=== PATIENT | female | born 1945 | race Caucasian/White ===

== ENCOUNTER 2025-07-03 20:03 | Inpatient (IN) | payer MEDICARE, MEDICAID, SELFPAY ==
[2025-07-03] VITALS (8 sets, daily range): BP systolic 149–176; BP diastolic 52–105; PULSE 56–65; RESP 18–24; TEMP 37; O2SAT 93–97; BMI 36.3
--- NOTE | 2025-07-03 20:22 | PCA ---
NO OLD EKG
[2025-07-03 20:34] LABS: Hematocrit 36.0 % (37-47); Hemoglobin 11.8 g/dL (12.0-15.0); Immature Granulocytes Count 0.020 X10^3/uL (0.0-0.0); Mean Corp Hgb Conc 32.8 g/dL (32-36); Mean Corpuscular Volume 90.9 fL (81-99); Mean Platelet Vol. 9.9 fl (6.2-12.0); NRBC Flagged by Analyzer 0 % (0-5); Platelet Count 236 K/mm3 (150-450); RBC Distribution Width CV 14.6 % (11.6-14.6); RBC Distribution Width SD 48.7 fl (35.1-43.9); Red Blood Count 3.96 M/mm3 (4.2-5.4); White Blood Count 10.4 K/mm3 (4.4-11.0)
--- NOTE | 2025-07-03 20:40 | RAD_ITS ---
PROCEDURE: CHEST 1 VIEW (PORTABLE) 07/03/2025 REASON FOR EXAM: RESPIRATORY DISTRESS, EXPIRATORY WHEEZING, BILATER TECHNIQUE: Frontal view of the chest. FINDINGS: The heart is normal in size. Hilar prominence suggestive of vascular congestion. No acute osseous abnormalities. RAD/Chest 1 View (Portable) IMPRESSION: Possible vascular congestion. Reading Location: [id number]
--- NOTE | 2025-07-03 20:47 | ED.VIS.DYS ---
HPI History of Present Illness Chief Complaint: Shortness of Breath Detail of Chief Complaint: Acute shortness of breath that started early this afternoon Informant: patient Onset/Context/Timing Onset: Today and Hours Context: sudden and rest Timing: Continuous Quality: Positive for Dyspnea on exertion, Orthopnea and Wheezing; Negative for PND Current Severity: Moderate Maximum Severity: Severe Worsened by: Exertion and Lying flat Relieved by: Nothing Associated Symptoms cough; Negative for rhinorrhea, post nasal drip, ear pain, fever, sore throat, subjective, chills, sweats, clear sputum, white sputum, yellow sputum or green sputum Chest Pain: Positive for Continuous, Aching and Pressure Narrative Narrative: Patient is a 80-year-old woman. She has history of COPD. She has not smoked since 1988. She also has history of congestive heart failure. She denies history of myocardial infarction. She states she normally sleeps in a lazy boy chair at 60 to 75 degrees. This afternoon she abruptly became short of breath. She has nonproductive cough. She has difficulty walking across the room. She denies fever, chills night sweats. Denies rhinorrhea, congestion, postnasal drainage sore throat. She does have a cough that is nonproductive. She also complains of midsternal chest aching pressure sensation. There is no radiation. There was no diaphoresis associated with the onset. There is no radiation to her back, shoulders, neck or jaw. She denies leg pain, swelling discoloration from baseline. She has no history of VTE. PE Risk Factors: Negative for Cancer, OCP + Smoking + > 35, Prior DVT or PE, Recent immobilization, Recent surgery or Recent travel Prior similar symptoms: Yes (Exacerbation of congestive heart failure) Recent Illness/Hospitalization: No PFSH PFSH Medical History Hx of cervical cancer Borderline diabetes COPD (chronic obstructive pulmonary disease) HTN (hypertension) CHF (congestive heart failure) Allergy/AdvReac Type Severity Reaction Status Date / Time No Known Allergies Allergy Verified 07/03/25 20:04 Family History no significant family his Social History Smoking Status: Former smoker ROS ROS ED Constitutional Constitutional ED: Denies chills, fever(s), sweats or weight loss Eyes Eyes: Denies blurry vision, change in vision or diplopia ENT ENT ED: Denies ear pain, rhinorrhea or sore throat Cardiovascular Cardiovascular: Reports chest pain and orthopnea; Denies palpitations, paroxysmal nocturnal dyspnea or racing heartbeat Respiratory/Chest Respiratory/Chest: Reports cough, dyspnea on exertion and orthopnea; Denies paroxysmal nocturnal dyspnea or sputum Gastrointestinal Gastrointestinal: Denies abdominal pain, nausea or vomiting Genitourinary Genitourinary ED: Denies dysuria, hematuria or urinary frequency Musculoskeletal Musculoskeletal: Denies arthralgias, back pain, myalgias or neck pain Neurologic Neurologic: Denies headache(s), paresthesias or weakness Endocrine Endocrinology: Denies cold intolerance or heat intolerance Hematologic/Lymphatic Hematologic/Lymphatic: Denies easy bleeding or easy bruising EXAM Physical Exam Const Vital Signs: 07/03/25 20:03 07/03/25 20:28 07/03/25 21:03 Temperature 98.6 F Temperature Source Oral Pulse Rate 58 L 65 Respiratory Rate 22 H 18 Respiratory Effort Short of Breath Respiratory Pattern Tachypnea Blood Pressure 168/105 H Blood Pressure Mean 126 Pulse Ox 97 94 Oxygen Delivery Method Room Air Room Air Room Air 07/03/25 21:35 07/03/25 22:00 07/03/25 22:51 Temperature 98.6 F Temperature Source Pulse Rate 60 60 64 Respiratory Rate 18 24 H Respiratory Effort Respiratory Pattern Blood Pressure 149/78 H 156/65 H 156/65 H Blood Pressure Mean 95 95 Pulse Ox 94 96 Oxygen Delivery Method Room Air Positive well nourished and well developed Constitutional Narrative: Patient is tachypneic. She has conversational dyspnea. Vital signs noted. At the time of this note there was no blood pressure reading documented. (2049) General Appearance ED: well developed; Negative for pallor HEENT Reports dry mucous membranes HEENT Narrative: Head is atraumatic, cephalic. Ears normal. Nares patent. Mouth ED: Yes dry mucous membranes Mouth: dry mucous membranes Eyes PERRL and EOMs intact bilaterally General Eye ED: Negative for pale conjunctiva or scleral icterus Neck no lymphadenopathy, supple, no meningeal signs and no JVD Neck Narrative: Difficult to assess for JVD due to body habitus. Resp No normal respiratory effort and No clear to auscultation bilaterally Auscultation: rales bilateral base and wheezes expiratory wheezes Cardio regular rate, regular rhythm, S1 normal heart sound, S2 normal heart sound and no murmurs GI non-tender, non-distended and no masses Auscultation: normoactive bowel sounds Palpation: soft Extremity Extremity Narrative: Minimal pitting edema noted. There is no discoloration, leg vein distention, palpable cord sounds on the distribution deep venous system. There is no asymmetry General Extremety ED: Yes edema General Extremity: edema Neuro oriented x3, CN's II-XII intact bilaterally and no sensory deficits noted [place] Coma Scale: document GCS findings Oriented Sensorium / Orientation: alert Speech: speech normal Psych mental status grossly normal Skin no wounds and skin turgor normal General Skin Exam: Negative for jaundice or pallor MDM MDM MDM Narrative Medical decision making narrative: Differential diagnosis is pneumonia, pneumothorax, congestive heart failure, COPD exacerbation, non-ST elevation CT. Will obtain EKG, chest x-ray appropriate blood work. Lab Data Attestation: I reviewed the patient's lab results. Lab results narrative: CBC reveals a normal white count and differential. H&H reveals hemoglobin 11.8 and 36.0 with normal indices. Basic metabolic panel is remarkable elevated BUN/creatinine ratio 32:1. BUN is 32 with a creatinine of 1. BNP is 1421 which is within normal limits. First troponin is elevated at 57. Labs: Laboratory Results - last 24 hr 07/03/25 07/03/25 20:20 22:16 WBC 10.4 RBC 3.96 L Hgb 11.8 L Hct 36.0 L MCV 90.9 MCH 29.8 MCHC 32.8 RDW Std Deviation 48.7 H RDW Coeff of Caden 14.6 Plt Count 236 MPV 9.9 Immature Gran % (Auto) 0.200 Neut % (Auto) 57.0 Lymph % (Auto) 30.2 [place] % (Auto) 7.0 Eos % (Auto) 5.1 H Baso % (Auto) 0.5 Absolute Neuts (auto) 5.9 Absolute Lymphs (auto) 3.15 Nucleated RBC % 0 Sodium 141 Potassium 4.6 Chloride 109 H Carbon Dioxide 22.5 Anion Gap 10 BUN 32 H Creatinine 1.00 Estim Creat Clear Calc 49.46 L Est GFR (MDRD) Non-Af 57 L BUN/Creatinine Ratio 32.0 H Glucose 108 H Calcium 9.0 Troponin T High Sens 57 H* Troponin T Hi Sens 2 Hr 58 H* NT pro BNP II 1421 Radiography Chest X-Ray - ED: 1 View and Read by ED Physician (Cardiac silhouette and size are within normal limits. [place] is unremarkable. There appears to be some mild cephalization. There is no curly B-lines. There is no effusion noted. Osseous structures were no acute abnormality.) Diagnostic Testing: Clinical Impression(s) from Imaging Studies Chest X-Ray 07/03/25 20:40 IMPRESSION: Possible vascular congestion. Reading Location: [address] EKG Initial EKG: Attestation: I personally reviewed and interpreted this EKG as follows: Interpretation: Sinus Bradycardia (Rate is 58. Other than bradycardia EKG is normal. WA interval is 154 ms. Cures duration 78 ms. QT duration of 140 ms. [place] is normal.) Management Discussion w/another healthcare provider: Hospitalist (The night hospitalist was paged for admission for exacerbation of congestive heart failure.) Treatment and Re-Evaluation :: Patient was ambulated. Pulse ox went to 88% walking 50 feet. Patient's breathing is also labored. Since she does not have oxygen at home will call hospitalist for admission for exacerbation of CHF. There are no records available since she is not from this area. Discharge Plan Dx/Rx/DC Orders Clinical Impression: Acute exacerbation of CHF (congestive heart failure), Hypoxia, Hypertension, Bradycardia, sinus, Adult BMI 36.0-36.9 kg/sq m Disposition Disposition: Acute Care Hospital [facility]
[2025-07-03 21:14] LABS: Anion Gap 10 (5-15); BUN 32 mg/dL (4-19); BUN/Creat Ratio 32.0 RATIO (10-20); Calcium,Total 9.0 mg/dL (7.6-11.0); Carbon Dioxide 22.5 mmol/L (21.0-32.0); Chloride 109 mmol/L (98-108); Estimated Creatinine Clearance 49.46 ml/min (50-250); Glucose 108 mg/dL (70-99); Potassium 4.6 mmol/L (3.3-5.1); Pro- Brain NATRIURETIC PEPTIDE 1421 pg/mL (<=1800)
[2025-07-03 21:30] LABS: Troponin T High Sensitivity 57 ng/L (<=14)
[2025-07-03] MEDS: Nitroglycerin Oint 1 INCH PACKET TD (21:35)
[2025-07-03 22:39] LABS: Troponin T High Sens 2 HR 58 ng/L (<=14)
--- NOTE | 2025-07-03 22:56 | PCM.HP.STD ---
HPI - General General Date of Admission: 07/03/25 Date of Service: 07/03/25 Chief Complaint: Shortness of breath HPI Narrative XENIA AMIN, is a 80 F who presented to the emergency department [facility] on 07/03/2025 with a chief complaint of shortness of breath. Patient states this started abruptly on the afternoon prior to admission. She is currently in [place] visiting her daughter but lives in [place]. She states she has had about 3 hospitalizations for CHF in the past year. She also has a history of COPD but has not smoked since 1988. She denies any wheezing. She states she has had no fever or chills or signs of upper respiratory infection. She has not had PND but she does have orthopnea. She sleeps pretty continuously in the lazy boy at 60 to 75 degrees. She does have a history of YENNI but is noncompliant. She states that she does not really watch her salt intake or her fluid intake. She is overall a very poor historian. It appears she takes several medications but she is unclear what for and what dosage and exactly what medication she is on. We are trying to do a med reconciliation. She denies any chest pain at the time of my evaluation but did complain of some midsternal chest pain that was aching in nature with no radiation or concomitant symptoms to the emergency department physician. She is on chronic anticoagulation with Eliquis it is unclear if this is for paroxysmal atrial fibrillation or VTE. Vital signs on presentation showed temperature of 98.6, heart rate 58, respiratory 22, blood pressure was 168/105 and pulse ox was 97% on room air initially but then she desatted to 94. CBC was overtly unremarkable other than mild anemia with a hemoglobin of 11.8. Chemistry panel was overall unremarkable. Blood glucose was 108. Initial troponin was 57 with a delta of 58. proBNP was 1421. Chest x-ray was performed and showed mild cephalization consistent with mild volume overload and the read showed possible vascular congestion. EKG was sinus bradycardia with a rate of 58 and a normal AR interval and no ST-T wave changes consistent with acute ischemia. She was treated with diuretics and placed on a Nitropatch. She was feeling clinically much improved and an amatory pulse ox was ordered. Unfortunately with walking only 50 feet she desatted to 88% and therefore will require admission. Unfortunately, we have no previous data on her as she is not from this area and I have no records as of yet from previous hospitalizations. She states she is supposed to see a equal opportunity counselor but has not established with one. [facility] Medical History (Updated 07/04/25 @ 01:[address] Noemy Sanabria, DO) History of tobacco abuse Diabetic neuropathy Restless leg syndrome Depression Anxiety YENNI (obstructive sleep apnea) Anemia Hx of cervical cancer Borderline diabetes COPD (chronic obstructive pulmonary disease) HTN (hypertension) CHF (congestive heart failure) Home Medications Medication Instructions Recorded Last Taken Type apixaban 2.5 mg tablet (Eliquis) 2.5 mg PO BID blood thinner 07/04/25 07/03/25 History atorvastatin 10 mg tablet 10 mg PO DAILY lipids 07/04/25 07/03/25 History budesonide-formoterol HFA 160 inhalation inhaler 07/04/25 Unknown History mcg-4.5 mcg/actuation aerosol inhaler doxepin 3 mg tablet 3 mg PO QHS depression 07/04/25 Unknown History fluticasone propionate 230 1 puff inhalation BID inhaler 07/04/25 Unknown History mcg-salmeterol 21 mcg/actuation HFA inhaler (Advair HFA) furosemide 40 mg tablet 40 mg PO BID diuretic 07/04/25 Unknown History levofloxacin 750 mg tablet 750 mg PO abx 07/04/25 Unknown History meloxicam 15 mg tablet 15 mg PO DAILY pain 07/04/25 Unknown History metformin 500 mg tablet,extended 500 mg PO DAILY bg control 07/04/25 Unknown History release 24 hr mirabegron 50 mg tablet,extended 50 mg PO DAILY overactive bladder 07/04/25 Unknown History release 24 hr (Myrbetriq) mirtazapine 7.5 mg tablet 7.5 mg PO QHS mirtazapine 07/04/25 Unknown History omeprazole 40 mg capsule,delayed 40 mg PO DAILY nausea 07/04/25 Unknown History release oxybutynin chloride 5 mg 5 mg PO DAILY overactive bladder 07/04/25 Unknown History tablet,extended release 24 hr oxycodone-acetaminophen 5 mg-325 1 tab PO BID PRN PRN pain 07/04/25 Unknown History mg tablet potassium chloride 10 mEq 10 meq PO DAILY supplement 07/04/25 Unknown History tablet,extended release prednisone 20 mg tablet 20 mg PO BID steroid 07/04/25 Unknown History propranolol 60 mg tablet 60 mg PO BID cardiac 07/04/25 Unknown History ropinirole 4 mg tablet 4 mg PO BID restless legs 07/04/25 Unknown History zolpidem 6.25 mg tablet,extended 6.25 mg PO QHS PRN PRN insomnia 07/04/25 Unknown History release,multiphase Allergy/AdvReac Type Severity Reaction Status Date / Time No Known Allergies Allergy Verified 07/03/25 20:04 Family History (Updated 07/04/25 @ 00:[address] Noemy Sanabria DO) Other CAD (coronary artery disease) Heart disease Hypertension Family History no significant family his Surgical History no surgical history no surgical history Social History (Updated 07/04/25 @ 00:[address] Noemy Sanabria DO) household members: none housing: apartment current occupational status: retired Smoking Status: Former smoker alcohol intake: never substance use type: does not use ROS Constitutional Constitutional: Denies anorexia, change in weight, chills, fatigue, fever(s), malaise, night sweats, weakness or other Eyes Eyes: Denies blurry vision, change in eye color, change in vision, discharge from eye(s), double vision, erythema, eye pain, loss of vision or other ENT HEENT: Denies abnormal hearing, dysphagia, ear pain, epistaxis, headache(s), hearing loss, nasal congestion, nasal discharge, post nasal drip, sinus pressure, sore throat or other Cardiovascular Cardiovascular: Reports dyspnea on exertion, edema and orthopnea; Denies chest pain, claudication, lightheadedness, palpitations, paroxysmal nocturnal dyspnea, rapid heart rate, syncope or other Respiratory/Chest Respiratory/Chest: Reports dyspnea and shortness of breath with exertion; Denies cough, excessive phlegm production, hemoptysis, productive cough, shortness of breath at rest, wheezing or other Gastrointestinal Gastrointestinal: Denies abdominal pain, coffee ground emesis, constipation, diarrhea, dyspepsia, hematemesis, hematochezia, loose stools, melena, nausea, vomiting or other Genitourinary Genitourinary: Denies burning urination, difficulty urinating, dysuria, hematuria, nocturia, urinary frequency, urinary hesitancy, urinary incontinence, urinary urgency or other Musculoskeletal Musculoskeletal: Denies arthralgias, back pain, joint pain, joint stiffness, joint swelling, myalgias, neck pain or other Neurologic Neurologic: Denies abnormal gait, abnormal speech, confusion, disequilibrium, dizziness, focal weakness, headache(s), numbness, paresthesias, seizure-like activity, seizures, syncope, tingling, tremor(s) or other Psychiatric Psychiatric: Denies anxiety, depression, homicidal ideation, suicidal ideation or other Endocrine Endocrinology: Denies change in body appearance, cold intolerance, excessive sweating, heat intolerance, polydipsia, polyuria or other Hematologic/Lymphatic Hematologic/Lymphatic: Denies anemia, easy bleeding, easy bruising, lymphadenopathy or other Allergic/Immunologic Allergic/Immunologic: Denies rhinitis, hives, eczemia, asthma or other Vital Signs Vital Signs Vital Signs: 07/03/25 20:03 07/03/25 20:28 07/03/25 21:03 Temperature 98.6 F Temperature Source Oral Pulse Rate 58 L 65 Respiratory Rate 22 H 18 Respiratory Effort Short of Breath Respiratory Pattern Tachypnea Blood Pressure 168/105 H Blood Pressure Mean 126 Pulse Ox 97 94 Oxygen Delivery Method Room Air Room Air Room Air 07/03/25 21:35 07/03/25 22:00 07/03/25 22:51 Temperature 98.6 F Temperature Source Pulse Rate 60 60 64 Respiratory Rate 18 24 H Respiratory Effort Respiratory Pattern Blood Pressure 149/78 H 156/65 H 156/65 H Blood Pressure Mean 95 95 Pulse Ox 94 96 Oxygen Delivery Method Room Air Weight Weight: 93.1 kg Body Mass Index (BMI) 36.3 Physical Exam Const alert, oriented x3, no apparent distress and well nourished; Negative for average body habitus or healthy appearing Constitutional Narrative: Obese, elderly, white female, sitting up in bed, dyspnea with conversation but no signs of respiratory extremis, interacts appropriately, talkative General Appearance: cooperative HEENT normocephalic, head/scalp atraumatic, hearing grossly normal bilaterally and moist oral mucous membranes HEENT Narrative: Mallampati 3, no thrush Eyes EOMs intact bilaterally and conjunctivae normal Eyes Narrative: No scleral icterus Neck supple Neck Narrative: Mild JVD, trachea midline, neck is short and thick Resp No normal respiratory effort, no retractions, no use of accessory muscles and No clear to auscultation bilaterally Resp Narrative: Diminished at the APCs with crackles at the bases bilaterally upper airway expiratory wheeze with forced expiration, patient is dyspneic with conversation but no signs of extremis and stable on room air at rest Auscultation: crackles; Negative for rhonchi or wheezes Cardio regular rate, regular rhythm, S1 normal heart sound, S2 normal heart sound, no murmurs, no rub and no clicks; Negative for no gallops Cardio Narrative: S4 gallop present GI normal to inspection, nondistended, normoactive bowel sounds, soft to palpation and non-tender Extremity Extremity Narrative: Trace bilateral lower extremity pitting edema, no cyanosis or clubbing Neuro moves all extremities and no focal motor deficits Speech: speech normal Psych affect normal Psych Narrative: Talkative, makes good eye contact, interacts appropriately Results Lab / Micro Data 07/03/25 20:20 07/03/25 20:20 Labs: Laboratory Results - last 24 hr 07/03/25 20:20: WBC 10.4, RBC 3.96 L, Hgb 11.8 L, Hct 36.0 L, MCV 90.9, MCH 29.8, MCHC 32.8, RDW Std Deviation 48.7 H, RDW Coeff of Caden 14.6, Plt Count 236, MPV 9.9, Immature Gran % (Auto) 0.200, Neut % (Auto) 57.0, Lymph % (Auto) 30.2, [place] % (Auto) 7.0, Eos % (Auto) 5.1 H, Baso % (Auto) 0.5, Absolute Neuts (auto) 5.9, Absolute Lymphs (auto) 3.15, Nucleated RBC % 0, Sodium 141, Potassium 4.6, Chloride 109 H, Carbon Dioxide 22.5, Anion Gap 10, BUN 32 H, Creatinine 1.00, Estim Creat Clear Calc 49.46 L, Est GFR (MDRD) Non-Af 57 L, BUN/Creatinine Ratio 32.0 H, Glucose 108 H, Calcium 9.0, Troponin T High Sens 57 H*, NT pro BNP II 1421 07/03/25 22:16: Troponin T Hi Sens 2 Hr 58 H* Imaging Radiology Impression Chest X-Ray 07/03/25 20:40 IMPRESSION: Possible vascular congestion. Reading Location: [address] Assessment & Plan Assessment/Plan (1) Hypoxia: (2) Hypertension: (3) Acute exacerbation of CHF (congestive heart failure): (4) Elevated troponin: PLAN: Plan Shortness of breath and exertional hypoxia secondary to acute on chronic CHF of unknown type - Patient states this is about the third time this year she is admitted with heart failure - BNP is normal however clinical picture is very consistent with CHF - Chest x-ray shows cephalization and mild volume overload - Patient is not compliant with sodium or fluid restriction - Lasix 40 IV twice daily - Nitropaste in place to decrease afterload and bring down blood pressure - Strict I's and O's - Sodium restricted diet - Fluid restricted to 1500 cc - Daily weights - Check echocardiogram - Records requested from most recent hospitalization at [facility] in [place] pending interpretative dancer - Appears the patient may not be compliant with home sodium and fluid restriction-- > will need further education with regards to this Troponin elevation - Initial troponin at 57 with delta at 58 - Suspect increased troponin related to demand ischemia with hypoxia and CHF - Continue cycle with 4-hour troponin - Check wall motion with echocardiogram tomorrow - If wall motion abnormality present may need further involvement with cardiology - Check lipids - Start baby aspirin 81 mg daily Uncontrolled essential hypertension - Home medications unclear at this time - Will use PRNs - Nitropaste - Diuretics - Once we clarify home medications we will reinitiate as appropriate DM-2 - It appears that patient may have an insulin pump - Verifying and will order - Accu-Cheks ordered - Cardiac/carb controlled diet - Awaiting finalized med reconciliation Chronic anticoagulation with Eliquis - Unclear if this is due to previous VTE versus atrial fibrillation - Await records - Continue apixaban 5 mg p.o. twice daily YENNI - Patient noncompliant with CPAP Restless leg syndrome - Reinitiate home medications once verified Diabetic neuropathy - It appears the patient may be on gabapentin versus Lyrica - Awaiting reconciliation and will reinitiate according to home medication Hyperlipidemia - Check lipids - Continue atorvastatin but high intensity dose - Home dose appears to maybe be 10 mg - Awaiting verification on home medications COPD - As needed albuterol - Scheduled DuoNebs - Budesonide - Awaiting home medication verification Depression/anxiety - Awaiting verification of home medication regimen - Will reinitiate home medications once verified Obesity - BMI 35.1 - Recommend weight loss - Complicates treatment, prognosis, outcomes DVT prophylaxis - Continue home apixaban CODE STATUS - DNR CCA okay for short-term intubation as discussed with the patient prior to admission in the emergency department Charges/Coding Visit Charges Inpatient E&M: 93519 Init Hosp L2
[2025-07-04] VITALS (14 sets, daily range): BP systolic 101–164; BP diastolic 50–125; PULSE 49–86; RESP 16–20; TEMP 36.2–36.7; O2SAT 92–94; BMI 35.0
--- NOTE | 2025-07-04 00:29 | ECHOD_ITS ---
Reason For Study Reason For Study: DYSPNEA Procedure This was a 2D Doppler, Color Flow transthoracic echocardiogram. Exam performed portable in patient room. Left Ventricle Normal LV size. Normal left ventricular thickness. The estimated ejection fraction is 55 %. Stage 1 diastolic dysfunction. Right Ventricle Normal size and thickness. Normal systolic function. Atria The left atrium is mildly enlarged. Normal right atrium. Mitral Valve Mild (1+) mitral valve insufficiency. Tricuspid Valve Pulmonary artery systolic pressure is 25 mmHg. Normal pulmonary artery pressure. Mild (1+) tricuspid valve insufficiency. Aortic Valve The aortic valve is not well visualized. Trivial aortic valve insufficiency. Pulmonic Valve Trivial pulmonic valve insufficiency. Great Vessels Normal sized aortic root. Pericardium/Pleural Epicardial fat. MMode/2D Measurements & Calculations LVIDd: 4.9 cm IVSd: 0.80 cm Ao root diam: 3.2 cm LVIDs: 3.1 cm LVPWd: 1.1 cm RVDd: 3.8 cm FS: 37.6 % LAV(MOD-bp): 60.2 ml LVAd ap4: 22.5 cm2 SV(MOD-sp4): 42.6 ml LAV(MOD-bp) Indexed: 31.2 ml/m2 LVLd ap4: 7.2 cm SI(MOD-sp4): 22.1 ml/m2 LAV(MOD-sp2): 63.5 ml EDV(MOD-sp4): 57.3 ml LAV(MOD-sp4): 56.9 ml EDV(sp4-el): 59.5 ml LVAs ap4: 10.4 cm2 LVLs ap4: 6.2 cm ESV(MOD-sp4): 14.6 ml ESV(sp4-el): 14.9 ml EF(MOD-sp4): 74.4 % EF(sp4-el): 75.0 % SV(sp4-el): 44.6 ml LA A4 area: 20.4 cm2 LA dimension(2D): 4.2 cm RA A4 area: 13.3 cm2 Time Measurements MV dec time: 0.14 sec Doppler Measurements & Calculations MV E max john: 75.8 cm/sec Lat Peak E' John: 9.5 cm/sec Med Peak E' John: 8.1 cm/sec MV A max john: 93.3 cm/sec E/E' lat: 8.0 E/E' med: 9.4 MV E/A: 0.81 MV V2 max: 93.0 cm/sec Ao V2 max: 155.7 cm/sec MV max P.5 mmHg MV dec slope: 530.2 cm/sec2 Ao max P.7 mmHg MV V2 mean: 43.6 cm/sec Ao V2 mean: 102.2 cm/sec MV mean P.0 mmHg Ao mean P.8 mmHg MV V2 VTI: 46.6 cm Ao V2 VTI: 37.9 cm AV (velocity ratio): 1.0 LV V1 max: 150.4 cm/sec PA V2 max: 90.2 cm/sec TR max john: 243.6 cm/sec LV V1 max P.1 mmHg PA V2 mean: 66.6 cm/sec TR max P.7 mmHg LV V1 mean P.8 mmHg LV V1 mean: 102.3 cm/sec LV V1 VTI: 38.1 cm ECHO/Echo Complete Interpretation Summary Normal left ventricular size and function, the estimated ejection fraction is 5 5 %. Stage 1 diastolic dysfunction. Normal right ventricular size and function. Normal pulmonary artery pressure. Mild (1+) tricuspid valve insufficiency. Mild mitral regurgitation Mild left atrial enlargement Ordering Physician: Noemy Sanabria Referring Physician: GABRIEL VALDEZ Performed By: Dayanna Burrows RCS
[2025-07-04] MEDS: Nitroglycerin Oint 1 INCH PACKET TD ×3 (06:10→22:10)
[2025-07-04 06:13] LABS: Troponin T High Sens 4 HR 55 ng/L (<=14)
[2025-07-04 06:43] LABS: Hematocrit 35.6 % (37-47); Hemoglobin 11.7 g/dL (12.0-15.0); Immature Granulocytes Count 0.030 X10^3/uL (0.0-0.0); Mean Corp Hgb Conc 32.9 g/dL (32-36); Mean Corpuscular Volume 89.4 fL (81-99); Mean Platelet Vol. 10.3 fl (6.2-12.0); NRBC Flagged by Analyzer 0 % (0-5); Platelet Count 231 K/mm3 (150-450); RBC Distribution Width CV 14.4 % (11.6-14.6); RBC Distribution Width SD 47.5 fl (35.1-43.9); Red Blood Count 3.98 M/mm3 (4.2-5.4); White Blood Count 10.1 K/mm3 (4.4-11.0)
[2025-07-04 07:10] LABS: Cholesterol 146 mg/dL (<=200); Low Density Lipoprotein Calc. 75 mg/dL; Magnesium 2.0 mg/dL (1.5-2.2); Triglycerides 94 mg/dL; Very Low Density Lipoprotein 19 mg/dL (5-40); cholesterol:hdl ratio screen 2.71
[2025-07-04 07:11] LABS: AST(SGOT) 27 U/L (<=31); Alanine Aminotransfer ALT/SGPT 12 U/L (<=34); Albumin, Serum 3.9 g/dL (3.4-4.8); Alkaline Phosphatase 72 U/L (35-104); Anion Gap 13 (5-15); BUN 32 mg/dL (4-19); BUN/Creat Ratio 26.6 RATIO (10-20); Calcium,Total 9.7 mg/dL (7.6-11.0); Carbon Dioxide 24.5 mmol/L (21.0-32.0); Chloride 105 mmol/L (98-108); Estimated Creatinine Clearance 40.43 ml/min (50-250); Globulin 3.5 g/dL (2.2-4.2); Glucose 109 mg/dL (70-99); Potassium 3.5 mmol/L (3.3-5.1)
--- NOTE | 2025-07-04 07:25 | PCM.PN.HOSP ---
Reason for Visit Chief Complaint: Shortness of breath Subjective Subjective Feeling well. Was hospitalized at [facility] in [place], [place] for CHF exacerbation about 3 months ago. Objective Data Objective Data Vital Signs: Vital Signs Temp Pulse Resp BP Pulse Ox O2 Del Method 36.7 C 65 16 125/100 H 94 Room Air 07/04/25 00:30 07/04/25 06:10 07/04/25 00:30 07/04/25 06:10 07/04/25 00:30 07/04/25 01:01 Oxygen Delivery Method Room Air Weight: 89.811 kg Body Mass Index (BMI) 35.0 Lab / Micro Data 07/04/25 05:58 07/04/25 05:58 Labs: Laboratory Results - last 24 hr 07/03/25 20:20: WBC 10.4, RBC 3.96 L, Hgb 11.8 L, Hct 36.0 L, MCV 90.9, MCH 29.8, MCHC 32.8, RDW Std Deviation 48.7 H, RDW Coeff of Caden 14.6, Plt Count 236, MPV 9.9, Immature Gran % (Auto) 0.200, Neut % (Auto) 57.0, Lymph % (Auto) 30.2, Mckean % (Auto) 7.0, Eos % (Auto) 5.1 H, Baso % (Auto) 0.5, Absolute Neuts (auto) 5.9, Absolute Lymphs (auto) 3.15, Nucleated RBC % 0, Sodium 141, Potassium 4.6, Chloride 109 H, Carbon Dioxide 22.5, Anion Gap 10, BUN 32 H, Creatinine 1.00, Estim Creat Clear Calc 49.46 L, Est GFR (MDRD) Non-Af 57 L, BUN/Creatinine Ratio 32.0 H, Glucose 108 H, Calcium 9.0, Troponin T High Sens 57 H*, NT pro BNP II 1421 07/03/25 22:16: Troponin T Hi Sens 2 Hr 58 H* 07/04/25 01:08: Troponin T Hi Sens 4Hr 55 H* 07/04/25 01:09: POC Glucose 96 07/04/25 05:58: WBC 10.1, RBC 3.98 L, Hgb 11.7 L, Hct 35.6 L, MCV 89.4, MCH 29.4, MCHC 32.9, RDW Std Deviation 47.5 H, RDW Coeff of Caden 14.4, Plt Count 231, MPV 10.3, Immature Gran % (Auto) 0.300, Neut % (Auto) 49.5, Lymph % (Auto) 35.1, Mckean % (Auto) 9.7, Eos % (Auto) 4.7, Baso % (Auto) 0.7, Absolute Neuts (auto) 5.0, Absolute Lymphs (auto) 3.53, Nucleated RBC % 0, Sodium 143, Potassium 3.5, Chloride 105, Carbon Dioxide 24.5, Anion Gap 13, BUN 32 H, Creatinine 1.20, Estim Creat Clear Calc 40.43 L, Est GFR (MDRD) Non-Af 46 L, BUN/Creatinine Ratio 26.6 H, Glucose 109 H, Calcium 9.7, Phosphorus 3.8, Magnesium 2.0, Total Bilirubin 0.78, AST 27, ALT 12, Alkaline Phosphatase 72, Total Protein 7.4, Albumin 3.9, Globulin 3.5, Albumin/Globulin Ratio 1.1, Triglycerides 94, Cholesterol 146, LDL Cholesterol, Calc 75, VLDL Cholesterol 19, HDL Cholesterol 54, Cholesterol/HDL Ratio 2.71, TSH 6.820 H 07/04/25 06:04: POC Glucose 109 H Radiography Diagnostic Testing: Radiology Impression Chest X-Ray 07/03/25 20:40 IMPRESSION: Possible vascular congestion. Reading Location: [address] Physical Exam Const alert and no apparent distress Constitutional Narrative: up in bed on room air. no respiratory distress. no conversational dyspnea. HEENT head/scalp atraumatic and moist oral mucous membranes Resp normal respiratory effort, no retractions, no use of accessory muscles and clear to auscultation bilaterally Cardio regular rate, regular rhythm, S1 normal heart sound and S2 normal heart sound GI normal to inspection, nondistended, normoactive bowel sounds, soft to palpation, non-tender and non-distended Extremity normal to inspection and full ROM Neuro Sensorium / Orientation: awake and alert Assessment & Plan Assessment/Plan (1) Hypoxia: (2) Hypertension: (3) Acute exacerbation of CHF (congestive heart failure): (4) Elevated troponin: PLAN: Plan Acute CHF exacerbation unclear type Lasix 40 IV twice daily Strict I's and O's Sodium restricted diet Fluid restricted to 1500 cc Daily weights Check echocardiogram Records requested from most recent hospitalization at [facility] in [place] pending switchboard receptionist with regards to this Troponin elevation 2/2 AECHF. Initial troponin at 57 with delta at 58 Chronic medical conditions: essential hypertension- Home medications unclear at this time- Will use PRNs- Nitropaste- Diuretics- Once we clarify home medications we will reinitiate as appropriate DM-2- It appears that patient may have an insulin pump- Verifying and will order- Accu-Cheks ordered- Cardiac/carb controlled diet Chronic anticoagulation with Eliquis- Unclear if this is due to previous VTE versus atrial fibrillation- Await records- Continue apixaban 5 mg p.o. twice daily YENNI- Patient noncompliant with CPAP Restless leg syndrome- Reinitiate home medications once verified Diabetic neuropathy- It appears the patient may be on gabapentin versus Lyrica- Awaiting reconciliation and will reinitiate according to home medication Hyperlipidemia Check lipids- Continue atorvastatin but high intensity dose- Home dose appears to maybe be 10 mg- Awaiting verification on home medications COPD- As needed albuterol- Scheduled DuoNebs- Budesonide- Awaiting home medication verification Depression/anxiety- Awaiting verification of home medication regimen- Will reinitiate home medications once verified Obesity- BMI 35.1- Recommend weight loss- Complicates treatment, prognosis, outcomes DVT prophylaxis - Continue home apixaban CODE STATUS - DNR CCA okay for short-term intubation as discussed with the patient prior to admission in the emergency department Charges/Coding Visit Charges Inpatient E&M: 94345 Subs Hosp L2
[2025-07-04] MEDS: APIXABAN 5 MG TABLET PO ×2 (09:26→22:05)
[2025-07-04] MEDS: Potassium Chloride Oral Tablet 10 MEQ PO (09:27)
[2025-07-04] MEDS: Aspirin E.C. 81 MG Tablet PO (09:27)
[2025-07-04] MEDS: Budesonide Respules 0.5 MG/2 ML AMPUL.NEB. INHALATION ×2 (09:31→19:56)
[2025-07-04] MEDS: 0.9% Saline Lock 10 ML Syringe IV ×2 (11:31→16:51)
--- NOTE | 2025-07-04 11:50 | CASEMGMT ---
Social Work- SW met with pt to provide education and printed materials for directives. SW provided advanced care planning booklet and copy of HCPOA and Living Will. Pt declines to complete at this time, but will look over information and let SW know if she would like to complete during her stay. SW provided contact information to call if pt opts to complete after d/c. FILEMON Chavira
--- NOTE | 2025-07-04 12:10 | CASEMGMT ---
RN CM Face to Face with patient for initial transition planning/care coordination assessment. RN CM introduced self and role at [facility]. Patient lying in bed, alert and oriented. Patient willing to participate in assessment and is able to answer all questions appropriately. Care providers, pharmacy, and demographics verified. Strata: 1 PCP: Arun Specialists: none Preferred Pharmacy: [facility] at discharge. Insurance: [place] MCR Dual, ADY Prescription Benefit: yes Living Will/HPOA: none LNOK: daughter Living Arrangements: Patient lives alone in a single story home with 7 steps and railing to enter the home. Patient states she is independent at home. Transportation: daughter, nephew DME/HHC: Patient has shower chair, raised toilet, cane, walker, and grab bars at home. Will monitor for glucometer at discharge. Patient has had HHC in the past. No previous SNF. Patient wishes to discharge home, denies need for home health at this time. Patient states she has no further needs or concerns at this time. CM to follow for discharge planning needs that may arise. Disposition Plan: Patient to discharge home with family support and follow-up plans in place. Christina QUEZADA, RN, CM
[2025-07-05] VITALS (7 sets, daily range): BP systolic 127–142; BP diastolic 51–81; PULSE 55–65; RESP 16–18; TEMP 36–36.7; O2SAT 90–98; BMI 34.4
[2025-07-05] MEDS: Nitroglycerin Oint 1 INCH PACKET TD (06:22)
[2025-07-05 06:23] LABS: Hematocrit 39.5 % (37-47); Hemoglobin 13.0 g/dL (12.0-15.0); Immature Granulocytes Count 0.010 X10^3/uL (0.0-0.0); Mean Corp Hgb Conc 32.9 g/dL (32-36); Mean Corpuscular Volume 89.8 fL (81-99); Mean Platelet Vol. 10.0 fl (6.2-12.0); NRBC Flagged by Analyzer 0 % (0-5); Platelet Count 257 K/mm3 (150-450); RBC Distribution Width CV 14.6 % (11.6-14.6); RBC Distribution Width SD 47.9 fl (35.1-43.9); Red Blood Count 4.40 M/mm3 (4.2-5.4); White Blood Count 8.7 K/mm3 (4.4-11.0)
[2025-07-05] MEDS: Budesonide Respules 0.5 MG/2 ML AMPUL.NEB. INHALATION (06:59)
[2025-07-05 07:20] LABS: Anion Gap 15 (5-15); BUN 38 mg/dL (4-19); BUN/Creat Ratio 26.4 RATIO (10-20); Calcium,Total 9.4 mg/dL (7.6-11.0); Carbon Dioxide 25.1 mmol/L (21.0-32.0); Chloride 101 mmol/L (98-108); Estimated Creatinine Clearance 33.60 ml/min (50-250); Glucose 117 mg/dL (70-99); Potassium 3.9 mmol/L (3.3-5.1)
--- NOTE | 2025-07-05 08:01 | PN.HOSP_ITS ---
Reason for Visit Chief Complaint: Shortness of breath Subjective Subjective Feeling well. No new complaints. Breathing well. Objective Data Objective Data Vital Signs: Vital Signs Temp Pulse Resp BP Pulse Ox O2 Del Method 36.0 C L 56 L 16 127/51 H 90 Room Air 07/05/25 03:08 07/05/25 07:00 07/05/25 07:00 07/05/25 06:22 07/05/25 07:00 07/05/25 07:52 Oxygen Delivery Method Room Air Weight: 88.2 kg Body Mass Index (BMI) 34.4 Intake & Output: Intake and Output for Last 24 Hours 07/03/25 07/04/25 07/05/25 23:59 23:59 23:59 Intake Total 480 / 480 Balance 480 / 480 Lab / Micro Data 07/05/25 05:49 07/05/25 05:49 Labs: Laboratory Results - last 24 hr 07/04/25 11:37: POC Glucose 124 H 07/04/25 16:44: POC Glucose 108 H 07/05/25 05:49: WBC 8.7, RBC 4.40, Hgb 13.0, Hct 39.5, MCV 89.8, MCH 29.5, MCHC 32.9, RDW Std Deviation 47.9 H, RDW Coeff of Caden 14.6, Plt Count 257, MPV 10.0, Immature Gran % (Auto) 0.100, Neut % (Auto) 41.8 L, Lymph % (Auto) 43.6 H, [place] % (Auto) 10.0, Eos % (Auto) 3.8, Baso % (Auto) 0.7, Absolute Neuts (auto) 3.7, Absolute Lymphs (auto) 3.81, Nucleated RBC % 0, Sodium 141, Potassium 3.9, Chloride 101, Carbon Dioxide 25.1, Anion Gap 15, BUN 38 H, Creatinine 1.43 H, E stim Creat Clear Calc 33.60 L, Est GFR (MDRD) Non-Af 37 L, BUN/Creatinine Ratio 26.4 H, Glucose 117 H, Calcium 9.4 07/05/25 06:17: POC Glucose 116 H Radiography Diagnostic Testing: Radiology Impression Echocardiogram 07/04/25 00:29 Interpretation Summary Normal left ventricular size and function, the estimated ejection fraction is 55 %. Stage 1 diastolic dysfunction. Normal right ventricular size and function. Normal pulmonary artery pressure. Mild (1+) tricuspid valve insufficiency. Mild mitral regurgitation Mild left atrial enlargement Ordering Physician: Noemy Sanabria Referring Physician: GABRIEL VALDEZ Performed By: Dayanna Burrows RCS Physical Exam Const alert and no apparent distress HEENT head/scalp atraumatic and moist oral mucous membranes Resp normal respiratory effort, no retractions, no use of accessory muscles and clear to auscultation bilaterally Cardio regular rate, regular rhythm, S1 normal heart sound and S2 normal heart sound GI normal to inspection, nondistended, normoactive bowel sounds, soft to palpation, non-tender and non-distended Assessment & Plan Assessment/Plan (1) Hypoxia: (2) Hypertension: (3) Acute exacerbation of CHF (congestive heart failure): (4) Elevated troponin: PLAN: Plan Acute CHF exacerbation * unclear type * Lasix 40 IV twice daily, to be changed back to 40 BID PO. * Strict I's and O's * Sodium restricted diet * Fluid restricted to 1500 cc * Daily weights * Check echocardiogram * Records requested from most recent hospitalization at [facility] in [place] never arrived. Pt is planning on moving to the [facility] and would like a printed circuit boards laminator locally. * Recommend daily weights and to take an additional dose of furosemide for weight gain of 2 pounds in 1 day or 3 pounds in 1 week. Troponin elevation * demand ischemia 2/2 AECHF. * Initial troponin at 57 with delta at 58 Chronic medical conditions: * essential hypertension- Home medications unclear at this time- Will use PRNs- Nitropaste- Diuretics- Once we clarify home medications we will reinitiate as appropriate * DM-2- It appears that patient may have an insulin pump- Verifying and will order- Accu-Cheks ordered- Cardiac/carb controlled diet * Chronic anticoagulation with Eliquis- Unclear if this is due to previous VTE versus atrial fibrillation- Await records- Continue apixaban 5 mg p.o. twice daily * YENNI- Patient noncompliant with CPAP * Restless leg syndrome- Reinitiate home medications once verified * Diabetic neuropathy- It appears the patient may be on gabapentin versus Lyrica- Awaiting reconciliation and will reinitiate according to home medication * Hyperlipidemia Check lipids- Continue atorvastatin but high intensity dose- Home dose appears to maybe be 10 mg- Awaiting verification on home medications * COPD- As needed albuterol- Scheduled DuoNebs- Budesonide- Awaiting home medication verification * Depression/anxiety- Awaiting verification of home medication regimen- Will reinitiate home medications once verified * Obesity- BMI 35.1- Recommend weight loss- Complicates treatment, prognosis, outcomes DVT prophylaxis - Continue home apixaban CODE STATUS - DNR CCA okay for short-term intubation as discussed with the patient prior to admission in the emergency department
[2025-07-05] MEDS: Aspirin E.C. 81 MG Tablet PO (09:22)
[2025-07-05] MEDS: APIXABAN 5 MG TABLET PO (09:22)
[2025-07-05] MEDS: Potassium Chloride Oral Tablet 10 MEQ PO (09:23)
--- NOTE | 2025-07-05 11:26 | DS.PCM_ITS ---
Providers Date of Admission: 07/03/25 Primary Care Physician: Dr. Gabriel Valdez, LOAN ASSISTANT-C Reason For Visit: EXERTIONAL HYPOXIA 2/2 AECHF UNKOWN TYPE Diagnosis Discharge Diagnosis (1) Hypoxia: Status: Acute Code(s): R09.02 - Hypoxemia (2) Hypertension: Status: Chronic Code(s): I10 - Essential (primary) hypertension (3) Acute exacerbation of CHF (congestive heart failure): Status: Chronic Code(s): I50.9 - Heart failure, unspecified (4) Elevated troponin: Status: Acute Code(s): R79.89 - Other specified abnormal findings of blood chemistry Plan Acute CHF exacerbation * unclear type * Lasix 40 IV twice daily, to be changed back to 40 BID PO. * Strict I's and O's * Sodium restricted diet * Fluid restricted to 1500 cc * Daily weights * Check echocardiogram * Records requested from most recent hospitalization at [facility] in [place] never arrived. Pt is planning on moving to the [facility] and would like a registered occupational therapist locally. * Recommend daily weights and to take an additional dose of furosemide for weight gain of 2 pounds in 1 day or 3 pounds in 1 week. Troponin elevation * demand ischemia 2/2 AECHF. * Initial troponin at 57 with delta at 58 Chronic medical conditions: * essential hypertension- Home medications unclear at this time- Will use PRNs- Nitropaste- Diuretics- Once we clarify home medications we will reinitiate as appropriate * DM-2- It appears that patient may have an insulin pump- Verifying and will order- Accu-Cheks ordered- Cardiac/carb controlled diet * Chronic anticoagulation with Eliquis- Unclear if this is due to previous VTE versus atrial fibrillation- Await records- Continue apixaban 5 mg p.o. twice daily * YENNI- Patient noncompliant with CPAP * Restless leg syndrome- Reinitiate home medications once verified * Diabetic neuropathy- It appears the patient may be on gabapentin versus Lyrica- Awaiting reconciliation and will reinitiate according to home medication * Hyperlipidemia Check lipids- Continue atorvastatin but high intensity dose- Home dose appears to maybe be 10 mg- Awaiting verification on home medications * COPD- As needed albuterol- Scheduled DuoNebs- Budesonide- Awaiting home medication verification * Depression/anxiety- Awaiting verification of home medication regimen- Will reinitiate home medications once verified * Obesity- BMI 35.1- Recommend weight loss- Complicates treatment, prognosis, outcomes DVT prophylaxis - Continue home apixaban CODE STATUS - DNR CCA okay for short-term intubation as discussed with the patient prior to admission in the emergency department Medications at Discharge Home Medications apixaban 2.5 mg tablet (Eliquis) 2.5 mg PO BID blood thinner 07/04/25 atorvastatin 10 mg tablet 10 mg PO DAILY lipids 07/04/25 budesonide-formoterol HFA 160 mcg-4.5 mcg/actuation aerosol inhaler inhalation PRN inhaler 07/04/25 doxepin 3 mg tablet 3 mg PO QHS depression 07/04/25 fluticasone propionate 230 mcg-salmeterol 21 mcg/actuation HFA inhaler (Advair HFA) 1 puff inhalation BID inhaler 07/04/25 furosemide 40 mg tablet 40 mg PO BID diuretic 07/04/25 gabapentin 300 mg capsule 300 mg PO Q8 pain 07/04/25 meloxicam 15 mg tablet 15 mg PO DAILY pain 07/04/25 metformin 500 mg tablet,extended release 24 hr 500 mg PO DAILY bg control 07/04/25 mirabegron 50 mg tablet,extended release 24 hr (Myrbetriq) 50 mg PO DAILY overactive bladder 07/04/25 mirtazapine 7.5 mg tablet 7.5 mg PO QHS mirtazapine 07/04/25 omeprazole 40 mg capsule,delayed release 40 mg PO DAILY nausea 07/04/25 oxybutynin chloride 5 mg tablet,extended release 24 hr 5 mg PO DAILY overactive bladder 07/04/25 oxycodone-acetaminophen 5 mg-325 mg tablet 1 tab PO BID PRN PRN pain 07/04/25 potassium chloride 10 mEq tablet,extended release 10 meq PO DAILY supplement 07/04/25 propranolol 60 mg tablet 60 mg PO BID cardiac 07/04/25 ropinirole 4 mg tablet 4 mg PO BID restless legs 07/04/25 zolpidem 6.25 mg tablet,extended release,multiphase 6.25 mg PO QHS PRN PRN insomnia 07/04/25 lisinopril 10 mg tablet 10 mg PO DAILY #30 tabs 07/05/25 Hospital Course Procedures 2-D Echocardiogram Weight / BMI Weight Weight: 88.2 kg Body Mass Index (BMI) 34.4 ABG / Lab / Microbiology Data 07/05/25 05:49 07/05/25 05:49 Laboratory: Laboratory Results - last 24 hr 07/04/25 11:37: POC Glucose 124 H 07/04/25 16:44: POC Glucose 108 H 07/05/25 05:49: WBC 8.7, RBC 4.40, Hgb 13.0, Hct 39.5, MCV 89.8, MCH 29.5, MCHC 32.9, RDW Std Deviation 47.9 H, RDW Coeff of Caden 14.6, Plt Count 257, MPV 10.0, Immature Gran % (Auto) 0.100, Neut % (Auto) 41.8 L, Lymph % (Auto) 43.6 H, [place] % (Auto) 10.0, Eos % (Auto) 3.8, Baso % (Auto) 0.7, Absolute Neuts (auto) 3.7, Absolute Lymphs (auto) 3.81, Nucleated RBC % 0, Sodium 141, Potassium 3.9, Chloride 101, Carbon Dioxide 25.1, Anion Gap 15, BUN 38 H, Creatinine 1.43 H, E stim Creat Clear Calc 33.60 L, Est GFR (MDRD) Non-Af 37 L, BUN/Creatinine Ratio 26.4 H, Glucose 117 H, Calcium 9.4 07/05/25 06:17: POC Glucose 116 H Radiography Diagnostic Testing: Radiology Impression Echocardiogram 07/04/25 00:29 Interpretation Summary Normal left ventricular size and function, the estimated ejection fraction is 55 %. Stage 1 diastolic dysfunction. Normal right ventricular size and function. Normal pulmonary artery pressure. Mild (1+) tricuspid valve insufficiency. Mild mitral regurgitation Mild left atrial enlargement Ordering Physician: Noemy Sanabria Referring Physician: GABRIEL VALDEZ Performed By: Dayanna Burrows RCS D/C Instructions DC O2, CPAP, BIPAP Needs Home O2 Discharge instructions: No Meaningful Use Info Meaningful Use Meaningful Use Diagnoses (Choose all that apply): CHF CHF GISELLA/ARB ordered at discharge?: Yes Documented LVEF (%): 55 Discharge Plan Admission Admit Date/Time: 07/03/25 23:01 Primary Reason for Your Visit: CHF exacerbation. Attending Provider: Arsh Tucker Primary Care Provider: Gabriel Valdez Consulting Providers: Noemy Sanabria Instructions Additional Instructions / Restrictions: Check daily weights and to take an additional dose of furosemide (lasix) for weight gain of 2 pounds in 1 day or 3 pounds in 1 week. Since your will be moving locally, please establish with a new primary care physician and a registered occupational therapist. Discharge Orders/Prescriptions Prescriptions: New lisinopril 10 mg tablet 10 mg PO DAILY Qty: 30 0RF Continued Eliquis 2.5 mg tablet 2.5 mg PO BID atorvastatin 10 mg tablet 10 mg PO DAILY budesonide-formoterol 160-4.5 mcg/actuation HFA aerosol inhaler inhalation PRN (Reason: inhaler) doxepin 3 mg tablet 3 mg PO QHS fluticasone propion-salmeterol [Advair HFA] 230-21 mcg/actuation HFA aerosol inhaler 1 puff inhalation BID zolpidem 6.25 mg tablet,ext release multiphase 6.25 mg PO QHS PRN PRN (Reason: insomnia) potassium chloride 10 mEq tablet extended release 10 meq PO DAILY oxycodone-acetaminophen 5-325 mg tablet 1 tab PO BID PRN PRN (Reason: pain) oxybutynin chloride 5 mg tablet extended release 24hr 5 mg PO DAILY omeprazole 40 mg capsule,delayed release(DR/EC) 40 mg PO DAILY mirtazapine 7.5 mg tablet 7.5 mg PO QHS mirabegron [Myrbetriq] 50 mg tablet extended release 24 hr 50 mg PO DAILY metformin 500 mg tablet extended release 24 hr 500 mg PO DAILY meloxicam 15 mg tablet 15 mg PO DAILY furosemide 40 mg tablet 40 mg PO BID ropinirole 4 mg tablet 4 mg PO BID propranolol 60 mg tablet 60 mg PO BID gabapentin 300 mg capsule 300 mg PO Q8 Discontinued prednisone 20 mg tablet 20 mg PO BID Referrals / Follow Up: [facility] [Provider Group] - Within 2 Weeks [facility] [Provider Group] - Within 1 Month Gabriel Valdez, LOAN ASSISTANT-C [Primary Care Provider, Medical] [facility] Doctor,Out of [Non-Staff, Medical] Disposition Disposition (needs filled in before D/C Order can be placed): Home, Self Care Charges/Coding Visit Charges Inpatient E&M: 24697 Disch Hosp
--- NOTE | 2025-07-05 12:13 | CASEMGMT ---
Patient has order for discharge. RN CM in to discuss needs at discharge. Patient denies needs or help at discharge. Patient had no further quesitons or concerns
--- NOTE | 2025-07-05 12:14 | PHA.DC.COU.R ---
Pharmacy [facility] has performed discharge medication counseling for this patient. The patient was counseled on the following discharge medications and changes in medications for homegoing review. - Lisinopril 10 mg tablet The Reason for Use, instructions for use, and potential side effects were reviewed for all new medications. The patient's questions regarding all of their medications were answered. The patient was able to verbally demonstrate an understanding of their discharge medications. Medications at Discharge Home Medications apixaban 2.5 mg tablet (Eliquis) 2.5 mg PO BID blood thinner 07/04/25 atorvastatin 10 mg tablet 10 mg PO DAILY lipids 07/04/25 budesonide-formoterol HFA 160 mcg-4.5 mcg/actuation aerosol inhaler inhalation PRN inhaler 07/04/25 doxepin 3 mg tablet 3 mg PO QHS depression 07/04/25 fluticasone propionate 230 mcg-salmeterol 21 mcg/actuation HFA inhaler (Advair HFA) 1 puff inhalation BID inhaler 07/04/25 furosemide 40 mg tablet 40 mg PO BID diuretic 07/04/25 gabapentin 300 mg capsule 300 mg PO Q8 pain 07/04/25 meloxicam 15 mg tablet 15 mg PO DAILY pain 07/04/25 metformin 500 mg tablet,extended release 24 hr 500 mg PO DAILY bg control 07/04/25 mirabegron 50 mg tablet,extended release 24 hr (Myrbetriq) 50 mg PO DAILY overactive bladder 07/04/25 mirtazapine 7.5 mg tablet 7.5 mg PO QHS mirtazapine 07/04/25 omeprazole 40 mg capsule,delayed release 40 mg PO DAILY nausea 07/04/25 oxybutynin chloride 5 mg tablet,extended release 24 hr 5 mg PO DAILY overactive bladder 07/04/25 oxycodone-acetaminophen 5 mg-325 mg tablet 1 tab PO BID PRN PRN pain 07/04/25 potassium chloride 10 mEq tablet,extended release 10 meq PO DAILY supplement 07/04/25 propranolol 60 mg tablet 60 mg PO BID cardiac 07/04/25 ropinirole 4 mg tablet 4 mg PO BID restless legs 07/04/25 zolpidem 6.25 mg tablet,extended release,multiphase 6.25 mg PO QHS PRN PRN insomnia 07/04/25 lisinopril 10 mg tablet 10 mg PO DAILY #30 tabs 07/05/25
== END 2025-07-05 12:52 | disposition home or self-care (01) | DRG 291 ==
LOC: ED 23:01 → PCU 23:13
PROVIDERS: Admitting Provider Internal Medicine; Emergency Provider Emergency Medicine; PCP Nurse Practitioner Family
DX: I11.0 Hypertensive heart disease with heart failure (principal); I50.31 Acute diastolic (congestive) heart failure; I24.89 Other forms of acute ischemic heart disease; Z66 Do not resuscitate; Z79.01 Long term (current) use of anticoagulants; E11.40 Type 2 diabetes mellitus with diabetic neuropathy, unspecified; J44.9 Chronic obstructive pulmonary disease, unspecified; G25.81 Restless legs syndrome; F32.A Depression, unspecified; E66.9 Obesity, unspecified; G47.33 Obstructive sleep apnea (adult) (pediatric); E78.5 Hyperlipidemia, unspecified; F41.9 Anxiety disorder, unspecified; Z87.891 Personal history of nicotine dependence; Z79.84 Long term (current) use of oral hypoglycemic drugs; R09.02 Hypoxemia; R79.89 Other specified abnormal findings of blood chemistry; Z79.51 Long term (current) use of inhaled steroids; Z68.35 Body mass index [BMI] 35.0-35.9, adult; Z79.899 Other long term (current) drug therapy; Z85.41 Personal history of malignant neoplasm of cervix uteri; Z91.199 Patient's noncompliance with other medical treatment and regimen due to unspecified reason
CPT/HCPCS: 36415; 71045; 80048; 80053; 80061; 82962; 83735; 83880; 84100; 84443; 84484; 85025; 93005; 93306; 94640; 94668; 97802; 99252; 99285; A4216; G0463; J1938